=== PATIENT | male | born 1980 | race Caucasian/White ===

== ENCOUNTER 2017-01-25 13:36 | Emergency (ER) | payer BC ==
[~2017-01-25] VITALS: Ht 167.6 cm; Wt 72.7 kg
[~2017-01-25 13:36] MED LIST: ASPIRIN 81M81 MG/TA2 PO; LOPRESSOR 225 MG/TAB PO; TAMBOCOR50 MG PO; TOPROL XL 50MG50 MG PO; TOPROL XL50 MG PO
[2017-01-25 13:48] VITALS: TEMP 97.9
[2017-01-25 14:51] LABS: BASO % 0.5 % (0.0-2.0); EOS # 0.1 (0.0-0.7); EOS % 0.8 % (0-4.0); GRAN # 4.6 (1.4-6.5); GRAN % 60.7 % (42.2-75.2); HEMATOCRIT 45.9 % (42.0-52.0); HEMOGLOBIN 16.1 g/dl (13.5-18.0); LYMPH # 2.3 (1.2-3.4); LYMPH % 30.3 % (20.0-51.0); MEAN CELL VOLUME 83 fl (80.0-100.0); MEAN CORPUSCULAR HEMOGLOBIN 29 pg (27.0-31.0); MEAN CORPUSCULAR HGB CONC 35 g/dl (33.0-37.0); MEAN PLATELET VOLUME 10.2 fl (7.4-10.4); MONO # 0.6 (0.1-0.6); MONO % 7.6 % (1.7-9.3); PLATELET COUNT 239 K/mm3 (130-400); RED BLOOD COUNT 5.51 M/mm3 (4.20-5.60); REDCELL DISTRIBUTION WIDTH-CV 12.1 % (11.5-14.5); WHITE BLOOD COUNT 7.5 K/mm3 (4.8-10.8)
[2017-01-25 14:59] LABS: ADJUSTED CALCIUM 9.1 mg/dL (8.4-10.2); ALANINE AMINOTRANSFERASE 31 U/L (21-72); ALBUMIN 4.5 gm/dL (3.5-5.0); ALKALINE PHOSPHATASE 55 U/L (50-136); ANION GAP 13 mmol/L (7-16); BILIRUBIN,TOTAL 0.8 mg/dL (0.0-1.0); BLOOD UREA NITROGEN 18 mg/dL (9-20); CALCIUM 9.5 mg/dL (8.4-10.2); CARBON DIOXIDE 25 mmol/L (22-30); CHLORIDE 103 mmol/L (98-107); CREATININE, serum 0.79 mg/dL (0.66-1.25); GLUCOSE 99 mg/dL (74-106); INR 1.2 (0.8-3.0); POTASSIUM 3.9 mmol/L (3.4-5.0); PROTHROMBIN TIME 12.9 SECONDS (9.7-12.8); SODIUM 141 mmol/L (137-145); TOTAL PROTEIN 7.3 gm/dL (6.4-8.2)
[2017-01-25 15:11] LABS: B-TYPE NATRIURETIC PEPTIDE 24 pg/mL (0-125)
[2017-01-25 15:14] LABS: TROPONIN-I < 0.012 ng/mL (0.000-0.034)
[2017-01-25 16:30] VITALS: BP 105/79; PULSE 78
== END 2017-01-25 16:33 | disposition home or self-care (01) ==
LOC: COL.ER 13:36
PROVIDERS: Emergency Medicine
DX: I48.91 Unspecified atrial fibrillation (principal)
CPT/HCPCS: J7030

== ENCOUNTER 2021-05-16 07:29 | Emergency (ER) | payer BC ==
[~2021-05-16] VITALS: Ht 167.6 cm; Wt 72.7 kg
[2021-05-16 07:52] LABS: BASO % 0.6 % (0.0-2.0); EOS # 0.1 (0.0-0.7); EOS % 1.3 % (0-4.0); GRAN # 3.4 (1.4-6.5); GRAN % 50.6 % (42.2-75.2); HEMATOCRIT 48.5 % (42.0-52.0); HEMOGLOBIN 16.7 g/dl (13.5-18.0); LYMPH # 2.5 (1.2-3.4); LYMPH % 37.6 % (20.0-51.0); MEAN CELL VOLUME 85 fl (80.0-100.0); MEAN CORPUSCULAR HEMOGLOBIN 29 pg (27.0-31.0); MEAN CORPUSCULAR HGB CONC 34 g/dl (33.0-37.0); MEAN PLATELET VOLUME 10.1 fl (7.4-10.4); MONO # 0.6 (0.1-0.6); MONO % 9.6 % (1.7-9.3); PLATELET COUNT 250 K/mm3 (130-400); RED BLOOD COUNT 5.68 M/mm3 (4.20-5.60); REDCELL DISTRIBUTION WIDTH-CV 12.2 % (11.5-14.5)
[2021-05-16 08:01] LABS: ALBUMIN 4.6 gm/dL (3.5-5.0); BILIRUBIN,TOTAL 0.9 mg/dL (0.0-1.0); CALCIUM 9.7 mg/dL (8.4-10.2); CREATININE, serum 0.98 (0.66-1.25); TOTAL PROTEIN 7.8 gm/dL (6.4-8.2)
[2021-05-16 08:36] VITALS: BP 110/87; PULSE 65
== END 2021-05-16 08:42 | disposition home or self-care (01) ==
LOC: COL.ER 07:29
PROVIDERS: Personal Emergency Response Attendant
DX: I48.20 Chronic atrial fibrillation, unspecified (principal); I48.0 Paroxysmal atrial fibrillation; Z45.02 Encounter for adjustment and management of automatic implantable cardiac defibrillator; Z79.899 Other long term (current) drug therapy
CPT/HCPCS: J2704